=== PATIENT | male | born 2000 | race Caucasian/White ===

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

== ENCOUNTER 2022-10-23 08:20 | Emergency (ER) | payer MEDICAID ==
[~2022-10-23] VITALS: Ht 172.7 cm; Wt 99.8 kg
[2022-10-23] MEDS ORDERED: ONDANSETRON 4MG INJ IVP ONE (09:00)
[2022-10-23 09:01] LABS: BASOPHILS # (AUTO) 0.05 K/uL (0.00-0.20); BASOPHILS % (AUTO) 0.3 % (0.0-5.0); EOSINOPHILS # (AUTO) 0.38 K/uL (0.00-0.70); EOSINOPHILS % (AUTO) 1.9 % (0.0-8.0); HEMATOCRIT 50.3 % (42-54); IMMATURE GRANULOCYTE ABSOLUTE 0.19 K/uL (0-1); MEAN CORPUSCULAR HEMOGLOBIN 31.1 pg (27.0-33.0); MEAN CORPUSCULAR HGB CONC 35.8 g/dL (32.0-36.0); MONOCYTES # (AUTO) 2.2 K/uL (0.1-1.0); NEUTROPHILS # (AUTO) 14.9 K/uL (1.8-7.7); NEUTROPHILS % (AUTO) 75.8 % (40.0-77.0); PLATELET COUNT (AUTO) 332 K/uL (130-400); RED BLOOD CELL COUNT(AUTO) 5.78 MIL/uL (4.50-6.20); RED CELL DISTRIBUTION WIDTH 11.4 % (11.0-15.5); WHITE BLOOD COUNT (AUTO) 19.6 K/uL (4.8-10.8)
[2022-10-23 09:29] LABS: ALBUMIN 4.8 g/dL (3.5-5.0); BILIRUBIN,TOTAL 1.3 mg/dL (0.2-1.0); TOTAL PROTEIN, SERUM 8.9 g/dL (6.0-8.3)
[2022-10-23] MEDS ORDERED: 0.9%NACL 1000ML 2,052 ML IV ONE (09:30)
[2022-10-23] MEDS ORDERED: CEFTRIAXONE 1G VIAL IVPB ONE (09:30)
[2022-10-23 09:48] LABS: INR 0.98 (0.85-1.15); PROTHROMBIN TIME 11.4 SEC (9.6-11.6)
[2022-10-23 09:49] LABS: PARTIAL THROMBOPLASTIN TIME 28.6 SEC (26.3-35.5)
[2022-10-23 09:51] LABS: APPEARANCE,URINE CLEAR (CLEAR); BILIRUBIN,URINE NEGATIVE (NEGATIVE); COLOR,URINE YELLOW (YELLOW); GLUCOSE, URINE (UA) NEGATIVE (NEGATIVE); KETONES,URINE 5 mg/dL (NEGATIVE); LEUKOCYTE ESTERASE ,URINE NEGATIVE Leu/uL (NEGATIVE); NITRATE,URINE NEGATIVE (NEGATIVE); OCCULT BLOOD,URINE SMALL (NEGATIVE); PH,URINE 6.5 (5.0-8.0); PROTEIN,URINE 100 mg/dL (NEGATIVE); UROBILINOGEN,URINE 0.2 mg/dL (0.2-1.0)
[2022-10-23 09:54] LABS: ADD UA MICROSCOPIC YES
[2022-10-23 09:55] LABS: AMPHET/METH SCREEN,URINE NEGATIVE (NEGATIVE); BARBITURATE SCREEN, URINE NEGATIVE (NEGATIVE); BENZODIAZEPINES SCREEN,URINE NEGATIVE (NEGATIVE); CANNABINOID SCREEN,URINE POSITIVE (NEGATIVE); COCAINE SCREEN,URINE NEGATIVE (NEGATIVE); OPIATE SCREEN,URINE NEGATIVE (NEGATIVE); PHENCYCLIDINE SCREEN,URINE NEGATIVE (NEGATIVE)
[2022-10-23 09:58] LABS: SQUAMOUS EPITHELIAL CELL,UR RARE /HPF (0-2)
[2022-10-23] MEDS ORDERED: POTASSIUM BICARB/CIT AC 25 MEQ TABLET.EFF PO ONE (10:30)
[2022-10-23 11:32] LABS: SARS-CoV-2, RNA, NAAT NEGATIVE SARS CoV-2 (NEGATIVE)
[2022-10-23 11:37] LABS: INFLUENZA TYPE A Negative For Type A (NEGATIVE); INFLUENZA TYPE B Negative For Type B (NEGATIVE)
[2022-10-23 11:51] LABS: RAPID GROUP A STREP positive (NEGATIVE)
[2022-10-23] MEDS ORDERED: AMOX875T2 PO (12:40)
[2022-10-23] MEDS ORDERED: ONDA4TAB10 PO (12:40)
[2022-10-23 13:06] VITALS: BP 133/78; PULSE 78; RESP 18; O2SAT 98
== END 2022-10-23 13:16 | disposition home or self-care (01) ==
LOC: EDH 08:20
DX: J02.0 Streptococcal pharyngitis (principal); D72.829 Elevated white blood cell count, unspecified; R79.89 Other specified abnormal findings of blood chemistry; F17.200 Nicotine dependence, unspecified, uncomplicated; F12.90 Cannabis use, unspecified, uncomplicated
CPT/HCPCS: 99284; 96365; 87635; 96366; 96375; 82550; 84484; 80053; 80305; 83690; 85025; 85610; 85730; 87040 ×2; 87088; 87880; 87804 ×2; 83605 ×2; 81001; 36415; 74021; C9803; J7030; J0696; J2405